=== PATIENT | female | born 1935 | race Caucasian/White ===

== ENCOUNTER 2021-03-16 10:50 | Day surgery (SDC) | payer OTHER ==
[2021-03-15 11:52] LABS: Absolute Lymphocytes (CBC) 1.2 K/uL (0.7-4.9); Basophils % 0.7 % (0-1.3); Hematocrit 35.9 % (36.0-45.0); MPV 7.5 fL (7.6-11.3); RBC Red Blood Cell Count 4.03 M/uL (3.86-4.86)
[2021-03-15 11:54] LABS: Protime INR 1.03
[2021-03-15 11:55] LABS: Potassium 3.4 mmol/L (3.5-5.1)
--- NOTE | 2021-03-15 12:07 | RAD REPORT ---
EXAM DESCRIPTION: Kylie Jones And Param (2 Views)03/15/2021 11:56 am CLINICAL HISTORY: preop for cardiac catheterization COMPARISON: 2010 FINDINGS: Lungs are hyperaerated. Moderate hiatal hernia. Calcification mitral annulus. The lungs appear clear of acute infiltrate. The heart is borderline enlarged IMPRESSION: No acute abnormalities displayed
--- NOTE | 2021-03-16 11:02 | EKG ---
Test Date: 2021-03-15 Test Time: 10:16:20 Staff Training And Development Manager: PONCE MEASUREMENT RESULTS: Intervals: Rate: 66 MS: 188 QRSD: 106 QT: 408 QTc: 427 [place]: P: 66 MS: 188 QRS: -40 T: 61 INTERPRETIVE STATEMENTS: Normal sinus rhythm Left axis deviation Incomplete right bundle branch block Abnormal ECG No previous ECG available for comparison Electronically Signed On 03-16-21 10:59:05 CDT by Sunil Cazares
[2021-03-16] MEDS ORDERED: NA CHLORIDE 0.9% 500 ML ONE (11:40)
[2021-03-16] MEDS ORDERED: HEPA 1000U/500MLS 2,000 UNIT/1,000 ML BAG IV ONE (12:09)
[2021-03-16] MEDS ORDERED: MIDAZOLAM HCL 2 MG/2 ML INJ ONE (12:15)
[2021-03-16] MEDS ORDERED: FENTANYL CITR 100 MCG/2 ML ONE (12:15)
[2021-03-16] MEDS ORDERED: ATROPINE SULF 1 MG/10 ML SYR IV ONE (12:20)
--- NOTE | 2021-03-16 13:25 | OP ---
Date of Procedure: 03/16/2021 Surgeon: VERONIKA ALCAZAR Procedure Performed: Selective coronary angiogram. Access: Right radial artery 6-Guamanian closed with TR band. Complications: None. Bleeding: The stent mL. Indication: Unstable angina. Description Of Procedure: After risks, benefits, and alternatives were explained, the patient agreed to the procedure and signed informed consent. The patient was brought into cardiac catheterization laboratory, prepped and draped in the usual sterile fashion. Then, we accessed the right radial lazaro ry using pediatric micropuncture kit and placed a 6-Guamanian slender sheath and took a 5-Guamanian Gaston 4 .0 catheter into the aortic root and engaged left main and right coronary artery, took standard views and then removed the catheter sheath and placed TR band with good hemostasis. Findings: 1.Left main; large and normal. 2.LAD; moderate-size vessel with luminal irregularities. 3.Left circumflex is nondominant, has 30% in the mid OM1 branch. 4.RCA; large dominant with proximal 30% and mid long 30% lesion, otherwise no significant disease. Conclusion: Mild nonobstructive coronary artery disease. Recommendations: Cardiac risk factor modification and medical management. SR/MODL Voice ID: [id number] Report ID: [id number]
[2021-03-16 13:56] VITALS: TEMP 96.4
[2021-03-16 15:26] VITALS: BP 134/50; O2SAT 97
[2021-03-16] MEDS ORDERED: HEPARIN 5000 UNIT/ML 1 ML VIAL IV ONE (18:00)
[2021-03-16] MEDS ORDERED: VERAPAMIL HCL 10 MG/4 ML VIAL IV ONE (18:00)
== END 2021-03-16 15:15 | disposition home or self-care (01) ==
LOC: CCL 10:50
PROVIDERS: ATTEND Internal Medicine
DX: I25.110 Atherosclerotic heart disease of native coronary artery with unstable angina pectoris (principal); I10 Essential (primary) hypertension; R60.9 Edema, unspecified; Z87.891 Personal history of nicotine dependence; Z88.2 Allergy status to sulfonamides; Z88.3 Allergy status to other anti-infective agents; Z01.810 Encounter for preprocedural cardiovascular examination; Z20.822 Contact with and (suspected) exposure to COVID-19
CPT/HCPCS: 93005; 85025; 80048; 36415; 85610; 85730; 71046; 93454; U0003; C1893; J1644 ×2; J2250; J3010; J7040

== ENCOUNTER 2021-04-27 09:26 | Day surgery (SDC) | payer OTHER ==
[2021-04-24 10:02] LABS: Urine Appearance CLEAR (Clear); Urine Bilirubin NEGATIVE (Negative); Urine Blood NEGATIVE (Negative); Urine Color YELLOW (Yellow); Urine Glucose NEGATIVE (Negative); Urine Protein NEGATIVE (Negative); Urine Specific Gravity <=1.005 (1.005-1.030); Urine Urobilinogen 0.2 mg/dL (0.2-1.0)
[2021-04-24 10:04] LABS: Absolute Lymphocytes (CBC) 1.9 K/uL (0.7-4.9); Basophils % 0.4 % (0-1.3); Hematocrit 35.8 % (36.0-45.0); Lymphocytes % 24.3 % (15.3-44.8); MPV 7.7 fL (7.6-11.3); RBC Red Blood Cell Count 4.02 M/uL (3.86-4.86)
[2021-04-24 10:08] LABS: Protime INR 1.05
[2021-04-24 10:10] LABS: Urine Microscopic Reflex NO UMIC
[2021-04-24 10:31] LABS: Potassium 3.1 mmol/L (3.5-5.1)
[2021-04-27] MEDS ORDERED: CEFAZOLIN/SWI 2gm 2 GM/20 ML SYR ONE (10:15)
[2021-04-27] MEDS ORDERED: Ringers Lactate 1,000 ML IV ONE (10:15)
[2021-04-27] MEDS ORDERED: NA CHLORIDE 0.9% 0 ML ONE (11:15)
[2021-04-27] MEDS ORDERED: LIDOCAINE 1% MPF 30 ML VIAL ONE (11:15)
[2021-04-27] MEDS ORDERED: VASOPRESSIN 20 UNIT/ML VIAL ONE ×2 (11:16→11:22)
[2021-04-27] MEDS ORDERED: CEFAZOLIN/SWI 1gm 1 GM/10 ML SYR ONE (11:16)
[2021-04-27] MEDS ORDERED: NA CHLORIDE 0.9% 1,000 ML ONE (11:22)
[2021-04-27] MEDS ORDERED: propofoL 200 MG/20 ML VIAL IV ONE (11:31)
[2021-04-27] MEDS ORDERED: FENTANYL CITR 100 MCG/2 ML ONE (11:32)
[2021-04-27] MEDS ORDERED: MIDAZOLAM HCL 2 MG/2 ML INJ ONE (11:32)
[2021-04-27] MEDS ORDERED: ROCURONIUM 50 MG/5 ML VIAL IV ONE (11:32)
[2021-04-27] MEDS ORDERED: LIDOCAINE 1% MPF 5 ML VIAL ONE (11:32)
[2021-04-27] MEDS ORDERED: LIDOCAINE 1% W/EPI 1:100,000 MDV 20 ML VIAL ONE (11:58)
[2021-04-27] MEDS ORDERED: KETOROLAC 30 MG/ML INJ ONE (12:31)
[2021-04-27] MEDS ORDERED: GLYCOPYRROLATE 0.2 MG/ML SYR ONE ×2 (12:31)
[2021-04-27] MEDS ORDERED: NEOSTIGMINE 1 MG/ML -5 ML ONE (12:33)
[2021-04-27] MEDS ORDERED: ONDANSETRON 4 MG/2 ML VIAL ONE (12:33)
[2021-04-27] MEDS ORDERED: PROMETHAZINE INJ 25 MG/ML AMP IV PRN (12:44)
[2021-04-27] MEDS ORDERED: MEPERIDINE HCL 25 MG/ML SYR IM PRN (12:44)
[2021-04-27] MEDS ORDERED: HYDROCODONE/APAP 5/325 MG TAB PO PRN (12:44)
--- NOTE | 2021-04-27 12:52 | P.BOP ---
Preoperative diagnosis: GAVIN Postoperative diagnosis: same Primary procedure: MUS (TVT-O) cystoscopy Real Estate Operations Manager: Carmen Yeager Estimated blood loss: 50 Specimen: none Findings: prolapse UVJ, hypermobile/Leak with valsalva under anesthesia Anesthesia: General Complications: None Drain(s): Urinary catheter Implants: tvt-o Transferred to: Recovery Room Condition: Good (no leak with valsalva post sling)
--- NOTE | 2021-04-27 15:28 | OP ---
Date of Procedure: 04/27/2021 Surgeon: Alena Jason MD Social Worker Psychiatric: Carmen Murdock. Preoperative Diagnosis: Stress urinary incontinence. Postoperative Diagnosis: Stress urinary incontinence. Procedures: Mid urethral sling (TVT-O), cystoscopy. Anesthesia: General. Estimated Blood Loss: 50. Specimens: No specimens. Complications: No complications. Drains: Carney catheter. Implants: TVT-O. Findings: Prolapse of the urethrovesical junction was noted. Hypermobile urethra that showed easily leak with Valsalva under anesthesia at the onset of the procedure. At the end of the procedure, sim ilar maneuver done and there was no leak. The patient was stable during the entire case. Description Of Procedure: After informed consent was verified, the patient was taken back to the OR, placed in a supine fashion on the operating table. 2 g of Ancef were given. SCDs were started. Sh e was given general anesthesia with LMA. Vulva, vagina, perineum, and medial thighs were all prepped and draped in a sterile fashion. Carney was placed to drain the bladder and retracted superiorly aft er drainage. The urethra was measured at 4 cm in the distal margin of the urethrovesical junction. Mid urethral area was marked with help of a marking pen. 1% lidocaine with 1:100,000 epinephrine was injected, 10 mL in the midline and another 8 mL on either side towards the tract that would be creat ed for the sling. Then, incision made with a 15 blade. Dissection carried onto the endopelvic fasci a all the way to the obturator space hugging the inferior pubic ramus at a 45-degree angle to the hor izontal and vertical planes. Once the space was entered, the tract of dissection was widened for kenzie cement of the sling into the channel. Similar dissection was performed on the opposite side. A dixon jonny was created in connection to the obturator space. Then, a wing guide was placed. Vamshi was pass ed in the usual fashion hugging the inferior pubic ramus without any perforation into the vaginal for nices. Then hugging the pubic ramus, the sling was passed to exit at a point that is 2 cm above the level of the urethral meatus, 2 cm outside the groin fold, 1 cm above the level of the horizontal camille e dropped at the level of the external meatus. The plastic sheath was pulled out with the help of a Nancy. The spike was removed. Mesh and the sheaths were held with a Nancy and the plastic dilator c ut. Then, wing guide placed on the opposite side. Vamshi passed in the usual fashion on this side, t hen point of exit at a similar side on the opposite thigh. Mesh and graft were held with a Nancy, pl astic dilator cut. Mid urethral area was a bit well visualized. Scissors were placed between the ur ethra and the mesh and tensioning was done appropriately. Sheath was pulled out. Mesh trimmed, flus hed with the skin. Incision closed with the help of 3-0 Vicryl in a continuous running locked fashio n after irrigating with antibiotic solution and groin incisions closed with the help of Dermabond. F oley removed. Cystoscopy performed with a 30-degree lens, normal saline and 17-Czech sheath. The e ntire bladder was visualized. No evidence of any trauma or foreign body or perforation. Both ureter ic orifices were well visualized bladder as well. Bladder was drained. Carney was replace d. The patient was recovered from anesthesia. Instrument, needle, and sponge counts were correct at the end of the case. The patient will have a voiding trial in 2 hours with retrograde filling. All the findings were discussed with her daughter. NGUYỄN/KAYLIN Voice ID: [id number] Report ID: [id number]
[2021-04-27 20:11] VITALS: BP 100/45; TEMP 97.1; O2SAT 99
[2021-04-27] MEDS ORDERED: ATORVASTATIN 10 MG TAB PO SCH (21:00)
[2021-04-28] MEDS ORDERED: NITROFURANTOIN MACROCRYSTAL 100 MG PO SCH (09:00)
[2021-04-28] MEDS ORDERED: MAXZIDE (HCTZ 25/TRIAMTERENE 37.5MG) TAB PO SCH (09:00)
== END 2021-04-27 17:30 | disposition home or self-care (01) ==
LOC: PRE 09:26
PROVIDERS: ATTEND Obstetrics & Gynecology
PROC: 0TSD0ZZ Reposition Urethra, Open Approach (ICD-10-PCS; principal; 2021-04-27 13:15)
DX: N39.3 Stress incontinence (female) (male) (principal); N32.81 Overactive bladder; N95.0 Postmenopausal bleeding; N95.2 Postmenopausal atrophic vaginitis; Z87.440 Personal history of urinary (tract) infections; Z20.822 Contact with and (suspected) exposure to COVID-19
CPT/HCPCS: 85025; 80048; 36415; 86900; 86850; 85610; 86901; 85730; 81003; 57288; U0002; J2704; J3010; J2710; J0690 ×2; J7120; J7030; J2405; J2250